=== PATIENT | female | born 1995 | race Hispanic/Latino ===

== ENCOUNTER 2018-08-04 21:00 | Emergency (ER) | payer SELFPAY ==
--- OUTSIDE RECORDS SUMMARY | 2018-08-04 21:02 | XMS REPORT ---
:1995 [facility] Address [address] [place] [address] Dr. Caldwell [address] [place] [address] Care Team Providers Name Role Phone Unavailable Unavailable Unavailable Problems This patient has no known problems. Allergies, Adverse Reactions, Alerts This patient has no known allergies or adverse reactions. Medications This patient has no known medications.
[2018-08-04 21:34] LABS: Urine Blood TRACE (NEG); Urine Glucose NEGATIVE (NEG); Urine Protein 1+ (NEG); Urine Specific Gravity 1.025 (1.005-1.030)
[2018-08-04] MEDS ORDERED: ONDANSETRON 4 MG (ODT) TAB ONE (21:55)
[2018-08-04] MEDS ORDERED: ACETAMINOPHEN 500 MG TAB ONE (22:55)
--- NOTE | 2018-08-04 22:58 | EDPHYS ---
Physician Documentation [facility] Name: Viv Faustin Age: 23 yrs Sex: Female : 1995 Arrival Date: 08/04/2018 Time: 21:01 Bed 19 Private MD: ED Physician Lb Kong HPI: 08/04 21:45 This 23 yrs old Female presents to ER via Ambulatory with complaints of cp Weakness, Cough, chills, Headache. 21:45 The patient or guardian reports cough, that is intermittent, with productive sputum. cp 21:45 Onset: The symptoms/episode began/occurred 2 day(s) ago. Associated signs and symptoms: cp Pertinent positives: diarrhea, sore throat, vomiting, headache, chills. Severity of symptoms: in the emergency department the symptoms are unchanged despite home interventions. Patient reports she is 6 weeks . Historical: - Allergies: 21:12 No Known Allergies; la1 - PMHx: 21:12 Anemia; la1 - Immunization history:: Adult Immunizations up to date. - Social history:: Smoking status: Patient/guardian denies using tobacco. - Ebola Screening: : No symptoms or risks identified at this time. ROS: 22:00 Constitutional: Positive for body aches, chills, Negative for fever, poor PO intake. cp 22:00 Eyes: Negative for injury, pain, redness, and discharge. cp 22:00 ENT: Positive for rhinorrhea, sore throat, Negative for drainage from ear(s), ear pain, difficulty swallowing, difficulty handling secretions. 22:00 Respiratory: Positive for cough, Negative for wheezing. 22:00 Abdomen/GI: Positive for vomiting, diarrhea, Negative for abdominal pain, constipation. 22:00 : Negative for urinary symptoms, vaginal bleeding, vaginal discharge. 22:00 Skin: Negative for cellulitis, rash. 22:00 Neuro: Positive for headache, Negative for altered mental status, weakness. 22:00 All other systems are negative. Exam: 22:05 Constitutional: The patient appears in no acute distress, alert, awake, non-toxic, well cp developed, well nourished. 22:05 Head/Face: Normocephalic, atraumatic. cp 22:05 Eyes: Periorbital structures: appear normal, Conjunctiva: normal, no exudate, no injection, Lids and lashes: appear normal, bilaterally. 22:05 ENT: External ear(s): are unremarkable, Ear canal(s): are normal, clear, TM's: bulging, is not appreciated, bilaterally, dullness, bilaterally, erythema, is not appreciated, bilaterally, Nose: nasal drainage, that is clear, Mouth: Lips: moist, Oral mucosa: moist, Posterior pharynx: Airway: no evidence of obstruction, patent, Tonsils: no enlargement, no exudate, swelling, is not appreciated, erythema, that is mild, Voice: is normal. 22:05 Neck: ROM/movement: is normal, is supple, without pain, no range of motions limitations, no meningismus, no nuchal rigidity. 22:05 Chest/axilla: Inspection: normal, Palpation: is normal, no crepitus, no tenderness. 22:05 Cardiovascular: Rate: normal, Rhythm: regular. 22:05 Respiratory: the patient does not display signs of respiratory distress, Respirations: normal, no use of accessory muscles, no retractions, no splinting, no tachypnea, labored breathing, is not present, Breath sounds: are clear throughout, no decreased breath sounds, no stridor, no wheezing. 22:05 Abdomen/GI: Inspection: abdomen appears normal, Palpation: abdomen is soft and non-tender, in all quadrants. 22:05 Skin: cellulitis, is not appreciated, no rash present. 22:05 Neuro: Orientation: to person, place \T\ time. Mentation: is normal, Cerebellar function: is grossly normal, Motor: is normal, Sensation: is normal. Vital Signs: 21:12 BP 104 / 63; Pulse 98; Resp 18; Temp 99.3; Pulse Ox 98% on R/A; Weight 70.76 kg; Height la1 4 ft. 11 in. (149.86 cm); 21:50 BP 111 / 61 LA Supine (auto/reg); Pulse 90; Resp 17; Pulse Ox 99% ; rr5 21:51 BP 115 / 65 LA Sitting (auto/); Pulse 97; Resp 16; Pulse Ox 98% ; rr5 21:52 BP 98 / 60 LA Standing (auto/reg); Pulse 102; Resp 17; Pulse Ox 100% ; rr5 22:40 BP 105 / 60; Pulse 95; Resp 17; Pulse Ox 99% ; rr5 23:00 BP 105 / 61; Pulse 96; Resp 16; Temp 99.1; Pulse Ox 99% ; rr5 23:20 BP 106 / 75; Pulse 98; Resp 16; Pulse Ox 98% ; rr5 21:12 Body Mass Index 31.51 (70.76 kg, 149.86 cm) la1 MDM: 21:14 Patient medically screened. cp 22:00 Differential diagnosis: bronchitis, flu, URI. cp 22:57 Data reviewed: vital signs, nurses notes, lab test result(s). cp 22:57 Counseling: I had a detailed discussion with the patient and/or guardian regarding: the cp historical points, exam findings, and any diagnostic results supporting the discharge/admit diagnosis, lab results, the need for outpatient follow up, an OB/Gyne specialist, to return to the emergency department if symptoms worsen or persist or if there are any questions or concerns that arise at home. 22:57 Response to treatment: the patient's symptoms have mildly improved after treatment, and cp as a result, I will discharge patient. 08/04 21:32 Order name: Urine Dipstick--Ancillary (enter results) sc 08/04 21:32 Order name: Urine --Ancillary (enter results) sc 08/04 21:33 Order name: Urine Dipstick-Ancillary; Complete Time: 21:36 EDMS 08/04 22:21 Interpretation: Normal except: UKET 2+; UBLD TRACE; UPROT 1+. 08/04 21:33 Order name: Urine --Ancillary; Complete Time: 21:36 EDMS 08/04 21:37 Order name: Influenza Screen (a \T\ B); Complete Time: 22:21 08/04 22:21 Interpretation: Normal except: FLUA FLU A ----- \T\nbsp; \T\nbsp; \T\nbsp; \T\nbsp; \T\nbsp; cp \T\nbsp; \T\nbsp; \T\nbsp; \T\nbsp; POSITIVE for FLU A protein antigen. 08/04 21:37 Order name: Strep; Complete Time: 22:21 cp 08/04 21:37 Order name: Orthostatics; Complete Time: 21:50 cp 08/04 22:01 Order name: Throat Culture EDNM 08/04 22:24 Order name: PO challenge; Complete Time: 22:44 cp Administered Medications: 21:50 Drug: Zofran 4 mg Route: PO; rr5 23:25 Follow up: Response: No adverse reaction rr5 22:44 Drug: Tylenol 1000 mg Route: PO; rr5 23:25 Follow up: Response: No adverse reaction rr5 Disposition: 08/04/18 22:58 Discharged to Home. Impression: Influenza due to identified novel influenza A virus. - Condition is Stable. - Discharge Instructions: Influenza, Adult, First Trimester of . - Prescriptions for Tamiflu 75 mg Oral Capsule - take 1 tablet by ORAL route every 12 hours for 5 days; 10 tablet. Phenergan 25 mg Rectal Suppository - insert 1 suppository by RECTAL route every 6 hours As needed; 12 suppository. promethazine 25 mg Oral Tablet - take 1 tablet by ORAL route every 6 hours As needed; 20 tablet. - Medication Reconciliation Form, Thank You Letter, Antibiotic Education, Prescription Opioid Use, Work release form form. - Follow up: Private Physician; When: 2 - 3 days; Reason: Recheck today's complaints. - Problem is new. - Symptoms have improved. Addendum: 08/07/2018 11:22 Co-signature as Attending Physician, Lb Kong MD I agree with the assessment and c peters plan of care. Signatures: Dispatcher [employer] EDNM Lb Kong MD MD cha Attema, Lee RN RN la1 Lb Boggs PA PA cp Roque, Raymond RN RN rr5 Corrections: (The following items were deleted from the chart) 08/04 23:26 22:58 08/04/2018 22:58 Discharged to Home. Impression: Influenza due to identified rr5 novel influenza A virus. Condition is Stable. Forms are Medication Reconciliation Form, Thank You Letter, Antibiotic Education, Prescription Opioid Use. Follow up: Private Physician; When: 2 - 3 days; Reason: Recheck today's complaints. Problem is new. Symptoms have improved. cp
--- NOTE | 2018-08-04 22:58 | ER ---
Nurse's Notes [facility] Name: Viv Faustin Age: 23 yrs Sex: Female : 1995 Arrival Date: 08/04/2018 Time: 21:01 Bed 19 Private MD: Diagnosis: Influenza due to identified novel influenza A virus Presentation: 08/04 21:11 Presenting complaint: Patient states: I have been feeling sick for 2 days with vomiting la1 and diarrhea and started with chills today. Pt is 6 weeks , also reports sore throat and cough. Transition of care: patient was not received from another setting of care. Onset of symptoms was August 04, 2018. Risk Assessment: Do you want to hurt yourself or someone else? Patient reports no desire to harm self or others. Initial Sepsis Screen: Does the patient meet any 2 criteria? No. Patient's initial sepsis screen is negative. Does the patient have a suspected source of infection? No. Patient's initial sepsis screen is negative. Care prior to arrival: None. 21:11 Method Of Arrival: Ambulatory la1 21:11 Acuity: RUBIN 4 la1 Historical: - Allergies: 21:12 No Known Allergies; la1 - PMHx: 21:12 Anemia; la1 - Immunization history:: Adult Immunizations up to date. - Social history:: Smoking status: Patient/guardian denies using tobacco. - Ebola Screening: : No symptoms or risks identified at this time. Screenin:15 Abuse screen: Denies threats or abuse. Denies injuries from another. Nutritional rr5 screening: No deficits noted. Tuberculosis screening: No symptoms or risk factors identified. Fall Risk None identified. Assessment: 21:15 General: Appears in no apparent distress. uncomfortable, Behavior is calm, cooperative, rr5 appropriate for age. Pain: Complains of pain in head Pain does not radiate. Pain currently is 7 out of 10 on a pain scale. Quality of pain is described as aching, Pain began gradually, Is intermittent. Neuro: Level of Consciousness is awake, alert, obeys commands, Oriented to person, place, time, situation, Appropriate for age Reports headache weakness. Cardiovascular: Capillary refill < 3 seconds Patient's skin is warm and dry. Respiratory: Reports cough that is Airway is patent Respiratory effort is even, unlabored, Respiratory pattern is regular, symmetrical. GI: Reports vomiting. : Urine is positive for test Reports 6 weeks . EENT: Reports sore throat. Derm: Skin is intact, Skin temperature is warm. Musculoskeletal: Capillary refill < 3 seconds, Range of motion: intact in all extremities. 22:40 Reassessment: complaining of headache. ED provider aware with order made and carried rr5 out. 23:20 Reassessment: Patient appears in no apparent distress at this time. Patient is alert, rr5 oriented x 3, equal unlabored respirations, skin warm/dry/pink. discharge instruction given and explained without complaints made. Patient states feeling better. Patient states symptoms have improved. Vital Signs: 21:12 BP 104 / 63; Pulse 98; Resp 18; Temp 99.3; Pulse Ox 98% on R/A; Weight 70.76 kg; Height la1 4 ft. 11 in. (149.86 cm); 21:50 BP 111 / 61 LA Supine (auto/reg); Pulse 90; Resp 17; Pulse Ox 99% ; rr5 21:51 BP 115 / 65 LA Sitting (auto/); Pulse 97; Resp 16; Pulse Ox 98% ; rr5 21:52 BP 98 / 60 LA Standing (auto/reg); Pulse 102; Resp 17; Pulse Ox 100% ; rr5 22:40 BP 105 / 60; Pulse 95; Resp 17; Pulse Ox 99% ; rr5 23:00 BP 105 / 61; Pulse 96; Resp 16; Temp 99.1; Pulse Ox 99% ; rr5 23:20 BP 106 / 75; Pulse 98; Resp 16; Pulse Ox 98% ; rr5 21:12 Body Mass Index 31.51 (70.76 kg, 149.86 cm) la1 ED Course: 21:01 Patient arrived in ED. am2 21:12 Triage completed. la1 21:13 Arm band placed on left wrist. la1 21:14 Lb Boggs PA is PHCP. cp 21:14 Lb Kong MD is Attending Physician. cp 21:15 Patient has correct armband on for positive identification. Placed in gown. Call light rr5 in reach. Pulse ox on. NIBP on. 21:27 Siddharth Harding, ALYCIA is Primary Nurse. rr5 23:25 No provider procedures requiring assistance completed. Patient did not have IV access rr5 during this emergency room visit. Administered Medications: 21:50 Drug: Zofran 4 mg Route: PO; rr5 23:25 Follow up: Response: No adverse reaction rr5 22:44 Drug: Tylenol 1000 mg Route: PO; rr5 23:25 Follow up: Response: No adverse reaction rr5 Outcome: 22:58 Discharge ordered by . cp 23:25 Discharged to home ambulatory. rr5 23:25 Condition: stable 23:25 Discharge instructions given to patient, Instructed on discharge instructions, follow up and referral plans. medication usage, Demonstrated understanding of instructions, follow-up care, Prescriptions given X 3. 23:26 Patient left the ED. rr5 Signatures: Shawn Sidhu RN RN la1 Lb Boggs PA PA cp Moreno, Amanda am2 Siddharth Harding RN RN rr5 Corrections: (The following items were deleted from the chart) 08/05 02:32 08/04 21:15 Respiratory: Reports cough that is Airway is patent Respiratory effort is rr5 even, unlabored, Respiratory pattern is regular, symmetrical, rr5 08/05 02:32 08/04 21:15 EENT: No signs and/or symptoms were reported regarding the EENT system. rr5 rr5
== END 2018-08-04 23:26 | disposition home or self-care (01) ==
LOC: ER 21:00
DX: J10.1 Influenza due to other identified influenza virus with other respiratory manifestations (principal); Z3A.01 Less than 8 weeks gestation of pregnancy
CPT/HCPCS: 81003; 81025; 87070; 87081; 87804; 99283

== ENCOUNTER 2018-10-30 00:43 | Inpatient (IN) | payer OTHER ==
[2018-10-30] MEDS ORDERED: CARBOPROST TROME 250 MCG/ML IM PRN (03:33)
[2018-10-30] MEDS ORDERED: METHYLERGONOVINE 0.2MG/ML AMP IM PRN (03:33)
[2018-10-30] MEDS ORDERED: Ringers Lactate 1,000 ML IV PRN (04:00)
--- OUTSIDE RECORDS SUMMARY | 2018-10-30 04:21 | XMS REPORT ---
:1995 [facility] Address [address] [place] [address] Dr. Caldwell [address] [place] [address] Care Team Providers Name Role Phone Unavailable Unavailable Unavailable Problems This patient has no known problems. Allergies, Adverse Reactions, Alerts This patient has no known allergies or adverse reactions. Medications This patient has no known medications.
[2018-10-30] MEDS ORDERED: OXYTOCIN/LR 20 UNITS/1,000 ML BAG IV SCH (04:30)
[2018-10-30] MEDS ORDERED: Ringers Lactate 1,000 ML IV SCH (04:30)
[2018-10-30 05:12] VITALS: BMI 35.5
[2018-10-30 05:20] LABS: RPR Titer ND
[2018-10-30 05:24] LABS: Urine Appearance CLEAR; Urine Bilirubin NEGATIVE (NEG); Urine Blood NEGATIVE (NEG); Urine Color YELLOW; Urine Glucose NEGATIVE (NEG); Urine Protein NEGATIVE (NEG)
[2018-10-30 05:26] LABS: Urine Microscopic Reflex NO UMIC
[2018-10-30 05:28] LABS: Absolute Monocytes 1.6 K/uL (0.1-1.3); Absolute Neutrophil 12.6 K/uL (1.8-8.0); Basophils % 0.2 % (0-1.3); Eosinophils % 0.4 % (0-4.4); Hematocrit 28.8 % (36.0-45.0); Lymphocytes % 17.4 % (15.3-44.8); MPV 8.5 fL (7.6-11.3); Monocytes % 9.1 % (3.3-12.3); RBC Red Blood Cell Count 4.36 M/uL (3.86-4.86)
[2018-10-30 06:00] LABS: Anisocytosis 2+; Blood Morphology Comment NOTED (NOT SEEN); Ovalocytes 1+; Platelet Estimate ADEQ
[2018-10-30] MEDS ORDERED: PROMETHAZINE 25 MG/ML VIAL IM ONE (08:31)
[2018-10-30] MEDS ORDERED: BUTORPHANOL 1 MG/ML INJ IV ONE (08:31)
[2018-10-30] MEDS ORDERED: FENTANYL CITR 100 MCG/2 ML IV ONE (10:01)
[2018-10-30] MEDS ORDERED: FENTANYL/BUPIVACAINE/NS/PF 200 MCG/100 ML BAG EP PRN (10:01)
[2018-10-30] MEDS ORDERED: BUPIVACAINE 0.25% PF 30 ML VIAL IV SCH (11:00)
[2018-10-30] MEDS ORDERED: ROPIVACAINE HCL 20 ML ONE (11:01)
[2018-10-30] MEDS ORDERED: ROPIVACAINE HCL 100 ML IV ONE (11:02)
[2018-10-30] MEDS ORDERED: LIDOCAINE 2% W/EPI 1:200,000 MPF 20 ML VIAL IM ONE (11:08)
[2018-10-30] MEDS ORDERED: DOCUSATE NA/SENNA CONC 1 TAB PO PRN (13:05)
[2018-10-30] MEDS ORDERED: Oxycodone HCl/Acetaminophen 1 TAB TAB PO PRN ×2 (13:05)
[2018-10-30] MEDS ORDERED: ACETAMINOPHEN 500 MG TAB PO PRN (13:05)
[2018-10-30] MEDS ORDERED: DIPHENHYDRAMINE 25 MG TAB/CAP PO PRN (13:05)
[2018-10-30] MEDS ORDERED: BISACODYL 10 MG RECTAL SUPP RECT PRN (13:05)
[2018-10-30] MEDS ORDERED: CEFAZOLIN/SWI 1gm 1 GM/10 ML SYR ONE (13:26)
[2018-10-30] MEDS ORDERED: OXYTOCIN/LR 20 UNIT/1,000 ML BAG IV SCH (14:00)
[2018-10-30] MEDS ORDERED: Ringers Lactate 1,000 ML IV ONE (17:43)
[2018-10-30] MEDS ORDERED: EPHEDRINE SULF 50 MG/5 ML SYR IM STA (19:17)
[2018-10-30] MEDS: IBUPROFEN 200 MG TAB PO PRN (20:15)
[2018-10-30 20:52] LABS: RPR (Rapid Plasma Reagin) NON-REACT (NON-REACT)
--- NOTE | 2018-10-31 11:43 | OP ---
Surgeon: Jerry Boyd MD A 23-year-old, 3, para 2, at 38 weeks and 6 days, favorable cervix. Numerous situations invo lving delivery of the baby tomorrow instead of today. We got clearance and decided to go today. I t hink this is quite reasonable. Female infant. The patient was 2.5 to 3 cm on admission. Rupture of membranes, clear fluid, 1 mg of Stadol IV, 25 mg of Phenergan IM. At 4 cm, requested and received e pidural anesthesia, which gave excellent effect during remainder of labor and delivery. Second stage of 10 minutes or less. Spontaneous vaginal delivery of an estimated 7-pound female, Apgars 9 and 9. No episiotomy. No lacerations. Manual removal of placenta, which was coming Mcneill and somewhat a dherent, 300 cc blood loss. Ancef 1 g ordered for prophylaxis. Rh positive, immune to Rubella, and negative beta strep screen. The patient tolerated all procedures well. Final Diagnoses: Term intrauterine . Vaginal delivery. Epidural anesthesia. Manual explo ration and removal of the placenta. MYKELC/MODL Voice ID: [id number] Report ID: [id number]
[2018-10-31 12:01] VITALS: BP 123/73; TEMP 97.8
[2018-10-31] MEDS: IBUPROFEN 200 MG TAB PO PRN (12:01)
--- NOTE | 2018-10-31 14:26 | PREOPHP ---
Date of Admission: 10/30/2018 This is a 23-year-old, 3, para 2, 38 weeks 6 days with favorable cervix and circumstances whi ch dictate that we deliver today instead of tomorrow. Fully explained to the patient and clearance t hrough labor and delivery. Patient is 2.5 cm, 50% effaced, vertex, -1 station. Rupture of membranes , clear fluid. Scotty regularly. She is Rh positive, immune to Rubella. Negative beta strep s creen. Full labor talk given. Patient will be requesting epidural. Of note, her admission white co unt was 17,000, but she is afebrile. The fluid is clear. There is no tenderness. She has had no fe yamileth. No signs of upper respiratory problems or even sinus problems so this may be sign just of early labor. We will monitor the temperature and heart rate during the labor and if any problems oc cur start her on antibiotics but right now I do not think this indicates any type of significant prob lems. Full labor talk given. MICHAEL/JOSE Voice ID: [id number]
--- NOTE | 2018-10-31 14:29 | PN ---
Subjective: Patient requested epidural anesthesia. She had 1 dose of Stadol 1 mg IV, Phenergan 25 m g IM and she is still somewhat obtunded from that. She is very comfortable at this point. Can barel y move her legs. We may cut the epidural back somewhat as she progresses. She is now 6 cm, 90% effa tommy, 0 to a -1 station. I anticipate more rapid progress soon. MICHAEL/JOSE Voice ID: [id number] Report ID: [id number]
[2018-11-02 04:04] LABS: HBsAG Nonreactive (Nonreactive)
== END 2018-10-31 15:30 | disposition home or self-care (01) | DRG 807 ==
LOC: 2ND-WC 04:19
PROVIDERS: ADMIT Specialist; ATTEND Specialist
PROC: 10E0XZZ Delivery of Products of Conception, External Approach (ICD-10-PCS; principal; 2018-10-30)
DX: O80 Encounter for full-term uncomplicated delivery (principal); Z37.0 Single live birth; Z3A.38 38 weeks gestation of pregnancy
CPT/HCPCS: 36415; 81003; 85025; 86592; 86901; 87340; J0595; J0690; J2210; J2550; J2590; J2795; J3010

== ENCOUNTER 2019-10-16 03:49 | Inpatient (IN) | payer OTHER ==
--- OUTSIDE RECORDS SUMMARY | 2019-10-16 03:51 | XMS REPORT ---
:1995 Author Organization [facility] Address [address] [place] [address] Dr. Caldwell [address] [place] [address] Care Team Providers Name Role Phone Claudy DATA CENTER TECHNICIAN, Lucille Attending Clinician Problems This patient has no known problems. Allergies, Adverse Reactions, Alerts This patient has no known allergies or adverse reactions. Medications This patient has no known medications. Procedures This patient has no known procedures. Encounters Start End Encounter Admission Attending Care Care Encounter Source Date/Time Date/Time Type Type Clinicians Facility Department ID 2019-08-08 2019-08-08 Telephone Claudy [facility] [id number] 00:00:00 00:00:00 Anisha Adkins [employer] MACHINE TENDER [id number] REGIONAL [id number] MATERNAL [id number] & CHILD [address] [place] [address] Results This patient has no known results.
--- OUTSIDE RECORDS SUMMARY | 2019-10-16 03:52 | XMS REPORT | Summary of Care ---
:1995 Author Organization [facility] Address [address] [place] [address] Care Team Providers Name Role Phone Lucille Loco OUT OF TOWN COLLECTION CLERK Primary Care Provider Encounter Details Date Type Department Care Team Description 07/24/2019 Orders Only [facility] Doctor Unassigned, No [address] [facility] [place] [address] [address] [place] [address] Allergies No Known Allergiesdocumented as of this encounter (statuses as of 07/24/2019) Medications Medication Sig Dispensed Refills Start Date End Date Status traMADOL (ULTRAM) 50 Take 1 Tab by mouth 30 Tab 0 6 Active mg tablet every 6 (six) hours as needed for Pain unrelieved by non-narcotic analgesics. vitamin Take 1 Tab by mouth 100 Tab 3 07/01/2015 Active w/FA (PRENATABS RX) daily. tablet docusate calcium Take 1 Cap by mouth 60 Cap 1 07/01/2015 Active (SURFAK) 240 mg once daily as needed capsule for Constipation. ferrous sulfate 325 Take 1 Tab by mouth 90 Tab 5 07/01/2015 Active mg (65 mg iron) 3 (three) times tablet daily with meals. ibuprofen (MOTRIN) Take 1 Tab by mouth 60 Tab 1 07/01/2015 Active 600 mg tablet every 6 (six) hours as needed for Pain (scale 1-3) or Pain (scale 4-6). Take with food or milk. foLIC acid (FOLATE) Take 1 Tab by mouth 30 Tab 5 07/01/2015 Active 1 mg tablet daily. documented as of this encounter (statuses as of 07/24/2019) Active Problems Problem Noted Date Liveborn , of [place] , born in [facility] by vaginal 07/01/2015 delivery 41 weeks gestation of 06/29/2015 Abnormal weight gain in 10/06/2013 Round ligament pain 10/06/2013 Hx of substance abuse 08/18/2013 Anemia of mother in , antepartum 08/18/2013 Rubella immune 11/14/2012 Generalized anxiety disorder 11/12/2012 Irregular menstrual cycle 11/12/2012 documented as of this encounter (statuses as of 07/24/2019) Resolved Problems Problem Noted Date Resolved Date Chlamydia trachomatis infection of lower genitourinary sites 11/14/2012 08/18/2013 Encounter for routine gynecological examination 11/12/2012 08/18/2013 Overview: ICD10 Diagnosis Term C Application Developer Utility Other general counseling and advice for contraceptive 201208/18/2013 management Tobacco use disorder 11/12/2012 08/18/2013 Overview: Marijuana. Stop during Dysmenorrhea 11/12/2012 08/18/2013 documented as of this encounter (statuses as of 07/24/2019) Immunizations Name Administration Dates Next Due Rubella 11/12/2012 Tdap 10/06/2013 Tetanus/Diptheria 2008 Varicella (varivax)(chicken pox) 1998 documented as of this encounter Social History Tobacco Use Types Packs/Day Years Used Date Former Smoker Cigarettes, Cigars Quit: Smokeless Tobacco: Never Used Alcohol Use Drinks/Week oz/Week Comments No 0 Standard drinks or equivalent 0.0 Sex Assigned at Date Recorded Not on file Job Start Date Occupation Industry Not on file Not on file Not on file Travel History Travel Start Travel End No recent travel history available. documented as of this encounter Last Filed Vital Signs Not on filedocumented in this encounter Plan of Treatment Date Type Specialty Care Team Description 07/24/2019 Initial Visit [facility] Anisha Loco, OUT OF TOWN COLLECTION CLERK [address] [place], [place] [address] [phone] Health Maintenance Due Date Last Done Comments VARICELLA VACCINES (2 of 2 - 06/19/1998 1998 2-dose childhood series) HPV VACCINES (1 - Female 2-dose 2005 series) PAP SMEAR 06/16/2018 06/16/2015 INFLUENZA VACCINE (#1) 2019 DTaP,Tdap,and Td Vaccines (2 - Td) 10/07/2023 10/06/2013 PNEUMOCOCCAL 0-64 YEARS COMBINED Aged Out No longer eligible based on SERIES patient's age to complete this topic documented as of this encounter Procedures Procedure Name Priority Date/Time Associated Diagnosis Comme nts ASSIGNMENT OF BENEFITS Routine 07/24/2019 9:41 AM [employer]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
--- OUTSIDE RECORDS SUMMARY | 2019-10-16 03:52 | XMS REPORT | Summary of Care ---
:1995 Author Organization [facility] Address [address] [place] [address] Care Team Providers Name Role Phone Lucille Loco Primary Care Provider Reason for Visit Reason Comments Lab Results Encounter Details Date Type Department Care Team Description 07/25/2019 Telephone [facility] RMP- A Anisha Gutierrez, LILIANA Lab Results [address] [place] [address] [facility] A [phone] [place], [place] [address] [phone] Allergies No Known Allergiesdocumented as of this encounter (statuses as of 07/28/2019) Medications Medication Sig Dispensed Refills Start Date End Date Status vit Take by mouth. 0 A ctive calc,iron,folic ( VITAMIN ORAL) documented as of this encounter (statuses as of 07/28/2019) Active Problems Problem Noted Date Supervision of high risk in second trimester 07/24/2019 Limited care in second trimester 07/24/2019 BMI 36.0-36.9,adult 07/24/2019 Obesity affecting in second trimester 2019 Hx of substance abuse 08/18/2013 Anemia of mother in , antepartum 08/18/2013 Generalized anxiety disorder 11/12/2012 Estimated Date of Delivery Comments Yes 11/09/2019 Based on last menstr ual period of 02/02/2019 (Within Weeks) documented as of this encounter (statuses as of 07/28/2019) Resolved Problems Problem Noted Date Resolved Date Liveborn , of otero , born in hospital by 07/01/2015 07/24/2019 vaginal delivery 41 weeks gestation of 06/29/2015 07/24/19 20 Abnormal weight gain in 10/06/20132019 Round ligament pain 10/06/2013 07/24/2019 Chlamydia trachomatis infection of lower genitourinary sites 11/14/2012 08/18/2013 Rubella immune 11/14/2012 07/24/2019 Encounter for routine gynecological examination 11/12/2012 08/18/2013 Overview: ICD10 Diagnosis Term Big 6 Dealer Utility Other general counseling and advice for contraceptive 201208/18/2013 management Tobacco use disorder 11/12/2012 08/18/2013 Overview: Marijuana. Stop during Irregular menstrual cycle 11/12/2012 07/24/2019 Dysmenorrhea 11/12/2012 08/18/2013 documented as of this encounter (statuses as of 07/28/2019) Immunizations Name Administration Dates Next Due Rubella 11/12/2012 Tdap 10/06/2013 Tetanus/Diptheria 2008 Varicella (varivax)(chicken pox) 1998 documented as of this encounter Social History Tobacco Use Types Packs/Day Years Used Date Former Smoker Cigarettes, Cigars Quit: Smokeless Tobacco: Never Used Alcohol Use Drinks/Week oz/Week Comments No 0 Standard drinks or equivalent 0.0 Estimated Date of Delivery Comments Yes 11/09/2019 Based on last menstr ual period of 02/02/2019 (Within Weeks) Sex Assigned at Date Recorded Not on file Job Start Date Occupation Industry Not on file Not on file Not on file Travel History Travel Start Travel End No recent travel history available. documented as of this encounter Last Filed Vital Signs Not on filedocumented in this encounter Plan of Treatment Date Type Specialty Care Team Description 08/07/2019 Routine Visit OB Satellites Anisha Loco, AIR TOOL OPERATOR [address] [place], [place] [address] [phone] Health Maintenance Due Date Last Done Comments PAP SMEAR 09/12/2019 06/16/2015 Postponed from 0 06/16/2018 (Alternative Endy delines) HPV VACCINES (1 - Female 2-dose 07/14/2020 Postponed from 2005 series) ( or Julissa astfeeding) INFLUENZA VACCINE (#1) 2020 Postponed from 02/02/2019 (Refused) DTaP,Tdap,and Td Vaccines (2 - 10/07/2023 10/06/2013 Td) PNEUMOCOCCAL 0-64 YEARS COMBINED Aged Out No longer eligible based on SERIES patient's age to complete this topic documented as of this encounter Results Not on filedocumented in this encounter Insurance Payer Benefit Plan / Subscriber ID Effective Phone Address T ype Group Dates MEDICAID MEDICAID PENDING 2019-[address] Pending [place] [address] documented as of this encounter
--- OUTSIDE RECORDS SUMMARY | 2019-10-16 03:52 | XMS REPORT | Summary of Care ---
:1995 Author Organization [facility] Address [address] [place] [address] Care Team Providers Name Role Phone Lucille Loco Primary Care Provider Reason for Visit Reason Comments New OB Visit Encounter Details Date Type Department Care Team Description [facility] pervision of high risk in second trimester (Primary Dx); Visit LILIANA Ballard Limited care in second trimeste r; [address] BMI 36.0-36.9,adult; [place], [place] Kun A Obesity affecting in second tr imester; [address] [place], [place] Multiparity [phone] Allergies No Known Allergiesdocumented as of this encounter (statuses as of 07/24/2019) Medications Medication Sig Dispensed Refills Start Date End Date Status vit Take by mouth. 0 A ctive calc,iron,folic ( VITAMIN ORAL) traMADOL (ULTRAM) Take 1 Tab by 30 Tab 0 07/01/2015 020 Discontinued 50 mg tablet mouth every 6 (six) hours as needed for Pain unrelieved by non-narcotic analgesics. vitamin Take 1 Tab by 100 Tab 3 07/01/2015 07/24/19 20 Discontinued w/FA (PRENATABS mouth daily. RX) tablet docusate calcium Take 1 Cap by 60 Cap 1 07/01/2015 07/24/19 20 Discontinued (SURFAK) 240 mg mouth once daily capsule as needed for Constipation. ferrous sulfate Take 1 Tab by 90 Tab 5 07/01/2015 0 Discontinued 325 mg (65 mg mouth 3 (three) iron) tablet times daily with meals. ibuprofen Take 1 Tab by 60 Tab 1 07/01/2015 07/24/2019 Disc ontinued (MOTRIN) 600 mg mouth every 6 tablet (six) hours as needed for Pain (scale 1-3) or Pain (scale 4-6). Take with food or milk. foLIC acid Take 1 Tab by 30 Tab 5 07/01/2015 07/24/2019 Dis continued (FOLATE) 1 mg mouth daily. tablet documented as of this encounter (statuses as of 07/24/2019) Active Problems Problem Noted Date Supervision of high risk in second trimester 07/24/2019 Limited care in second trimester 07/24/2019 BMI 36.0-36.9,adult 07/24/2019 Obesity affecting in second trimester 2019 Hx of substance abuse 08/18/2013 Generalized anxiety disorder 11/12/2012 Estimated Date [...] in 10/06/20132019 Round ligament pain 10/06/2013 07/24/2019 Anemia of mother in , antepartum 08/18/2013 07/24/2019 Chlamydia trachomatis infection of lower genitourinary sites 11/14/2012 08/18/2013 Rubella immune 11/14/2012 07/24/2019 Encounter for routine gynecological examination 11/12/2012 08/18/2013 Overview: ICD10 Diagnosis Term 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 Administrator Utility Other general counseling and advice for [...] Cigarettes, Cigars Quit: Smokeless Tobacco: Never Used Tobacco Cessation: Counseling Given: Yes Alcohol Use Drinks/Week oz/Week Comments No 0 [...] of this encounter Last Filed Vital Signs Vital Sign Reading Time Taken Comments Blood Pressure 109/61 07/24/2019 10:12 AM FINANCE INTERN Pulse 73 07/24/2019 10:12 AM FINANCE INTERN Temperature 36.6 C (97.8 F) 07/24/2019 10:12 AM FINANCE INTERN Respiratory Rate 16 07/24/2019 10:12 AM FINANCE INTERN Oxygen Saturation - - Inhaled Oxygen Concentration - - Weight 80.9 kg (178 lb 5 oz) 07/24/2019 10:12 AM FINANCE INTERN Height 149.9 cm (4' 11") 07/24/2019 10:12 AM FINANCE INTERN Body Mass Index 36.01 07/24/2019 10:12 AM FINANCE INTERN documented in this encounter Progress Notes Anisha Loco, CHOIR LEADER - 07/24/2019 9:45 AM CST Chief complaint: Chief Complaint Patient presents with New OB Visit CC: Initial Visit Viv Faustin is a 24 year old, , /White female. Patient's last menstrual period was 02/02/2019 (within weeks). States she had a + UPT on 03/04/19. She is 24w4d with an intrauterine . Her Estimated Date of Delivery: 11/09/19. She is being seen today for her first obstetrical visit. She has no complaints today. Denies current physical, emotional or sexual abuse. Patient denies recent foreign travel. She is taking PNV. She reports good FM. She denies any ctx/cramping, VB, LOF, EUCEDA, visual disturbance, vaginal discharge or dysuria. She denies any foreign travel. She also denies any physical, sexual or emotional abuse. OB History T3 L3 SAB0 TAB0 Ectopic0 Multiple0 Live Births3 Name of Baby 1: Not recorded Date: 11/28/13 GA: 40w0d Delivery: Vaginal Apgar1: Not recorded Apgar5: Not recorded Living: Living Name of Baby 2: Not recorded Date: 06/30/15 GA: 41w0d Delivery: Vaginal Apgar1: 8 Apgar5: 9 Living: Living Name of Baby 3: Not recorded Date: 10/30/18 GA: 40w0d Delivery: Vaginal, Spontaneous Apgar1: Not recorded Apgar5: Not recorded Living: Living Name of Baby 4: Not recorded Date: Not recorded GA: Not recorded Delivery: Not recorded Apgar1: Not recorded Apgar5: Not recorded Living: Not recorded Histories OB History Para Term AB Living 4 3 3 0 0 3 SAB TAB Ectopic Multiple Live Births 0 0 0 0 3 # Outcome Date GA Lbr Angus/2nd Weight Sex Delivery Anes PTL Lv 4 Current 3 Term 10/30/18 40w0d 6 lb 7 oz (2.92 kg) F Vag-Spont NICOLÁS 2 Term 06/30/15 41w0d 7 lb 11.7 oz (3.507 kg) F VAGINAL EPI NICOLÁS 1 Term 11/28/13 40w0d 8 lb 9 oz (3.884 kg) F VAGINAL NICOLÁS Past Medical History: Diagnosis Date Anemia of mother in , antepartum 08/18/2013 Anxiety no current medication Chlamydia trachomatis infection of lower genitourinary sites 11/14/2012 Chlamydia trachomatis infection of lower genitourinary sites 11/14/2012 Dysmenorrhea 11/12/2012 Generalized anxiety disorder 11/12/2012 resolved Hx of substance abuse 08/18/2013 Irregular menstrual cycle 11/12/2012 Tobacco use disorder 11/12/2012 Family History Problem Relation Age of Onset Hypertension Father Diabetes Father Breast Cancer Maternal Aunt Cancer Paternal Grandfather Hypertension Paternal Grandfather Neurological Mother "mini strokes" Arthritis NoFHx Asthma NoFHx defects NoFHx Colon Cancer NoFHx Ovarian Cancer NoFHx Uterine Cancer NoFHx Depression NoFHx Genetic NoFHx Heart NoFHx High cholesterol NoFHx Mental retardation NoFHx Osteoporosis NoFHx Psychiatry NoFHx Family Status Relation Name Status Fa Alive MAunt PGFa Mo Alive NoFHx (Not Specified) Past Surgical History: Procedure Laterality Date CORONARY ARTERY BYPASS GRAFT MYRINGOTOMY 2001 with "tissue taken out of my nose" during same surgery MYRINGOTOMY 2009 Social History Socioeconomic History Marital status: Single Spouse name: Not on file Number of children: 1 Years of education: 11 Highest education level: Not on file Occupational History Occupation: Unemployed Social Needs Financial resource strain: Not on file Food insecurity: Worry: Not on file Inability: Not on file Transportation needs: Medical: Not on file Non-medical: Not on file Tobacco Use Smoking status: Former Smoker Types: Cigarettes, Cigars Last attempt to quit: 06/04/2013 Years since quittin.1 Smokeless tobacco: Never Used Substance and Sexual Activity Alcohol use: No Alcohol/week: 0.0 standard drinks Drug use: No Sexual activity: Yes Partners: Male control/protection: None Comment: last sexual intercourse 07/17/2019 Lifestyle Physical activity: Days per week: Not on file Minutes per session: Not on file Stress: Not on file Relationships Social connections: Talks on phone: Not on file Gets together: Not on file Attends christian service: Not on file Active member of club or organization: Not on file Attends meetings of clubs or organizations: Not on file Relationship status: Not on file Intimate partner violence: Fear of current or ex partner: Not on file Emotionally abused: Not on file Physically abused: Not on file Forced sexual activity: Not on file Other Topics Concern Not on file Social History Narrative Denies domestic violence or abuse No exposure to cats No christian preference Patient lives with children. Social History Substance and Sexual Activity Sexual Activity Yes Partners: Male control/protection: None Comment: last sexual intercourse 07/17/2019 Genetic Screen Autism / Mental Retardation: No Jak Disease: No Congenital Heart Defect: No Cystic Fibrosis: No Down Syndrome: No Familial Dysautonomia: No Hemophilia or other Blood Disorders: No Kellie Chorea: No Maternal Metabolic Disorder--specify (eg. Type 1 Diabetes, PKU): No Muscular Dystrophy: No Neural Tube Defect: No Recurrent Loss or a Stillbirth: No Sickle Cell Disease or Trait: No Abdullahi Sachs: No Teratological Substances (specify type & strength/dose) since LMP: No Thalassemia: No Other Inherited Genetic or Chromosomal Disorder (specify): No No Significant History of Genetic Disorders: No Significant History of Genetic Disorders Labs Labs are pending. Radiology Radiology pending. Allergies Viv has No Known Allergies. Medications Viv has a current medication list which includes the following prescription(s): vit calc,iron,folic. Review of Systems Constitutional: Negative. Negative for appetite change, fatigue and fever. HENT: Negative. Eyes: Negative. Negative for visual disturbance. Respiratory: Negative. Breasts: Negative. Cardiovascular: Negative. Negative for palpitations and leg swelling. Gastrointestinal: Negative. Negative for abdominal pain, constipation, diarrhea, nausea and vomiting. Genitourinary: Negative. Negative for dysuria, vaginal bleeding, vaginal discharge and pelvic pain. Musculoskeletal: Negative. Skin: Negative. Negative for rash. Neurological: Negative. Negative for dizziness, light-headedness and headaches. Psychiatric/Behavioral: Negative. Endocrine: Endocrine negative BP 109/61 (BP Location: Right arm, Patient Position: Sitting, BP CUFF SIZE: Adult Medium) | Pulse 73 | Temp 36.6 C (97.8 F) (Oral) | Resp 16 | Ht 4' 11" (1.499 m) | Wt 178 lb 5 oz (80.9 kg) |LMP 02/02/2019 (Within Weeks) | No | BMI 36.01 kg/m Pregravid BMI: 32.3 Physical Exam Vitals reviewed. Constitutional: She is oriented to person, place, and time. She appears well- developed and well-nourished. Her body habitus is normal. See flowsheet Neck: No thyroid nodules and no thyromegaly palpated. Cardiovascular: Regular rate and rhythm. No murmur auscultated. No peripheral edema present. Pulmonary/Chest: Breath sounds clear to auscultation. Normal inspiratory effort. Abdominal: Abdomen is soft. No mass palpated. No tenderness present. There is no hepatosplenomegaly. Neuro/Psychiatric: She has a normal mood and affect. She is oriented to person, place, and time. Skin: Skin normal. No lesion and no rash present. tattoos present Genitourinary Comments: Chaperoned by: A Green MA Breast: Right breast exhibits no mass, no nipple discharge and no tenderness. Left breast exhibits no mass, no nipple discharge and no tenderness. Normal left breast and normal right breast External genitalia: Normal external genitalia appropriate for age. No labial lesion. Bladder: No tenderness. Normal bladder Vagina:Normal vagina. No lesion inspected. No abnormal vaginal discharge found. Cervix: Normal cervix. No lesion. No tenderness and no discharge present. Uterus: Uterus is enlarged. Uterus is normal position and non-tender. GravidNormal uterus Adnexa: Right adnexa without tenderness. Left adnexa without tenderness. Normal left adnexa and normal right adnexa PHYSICAL: General Exam: HEENT: Normal Thyroid: Normal Lymph Node: Normal Neurological: Normal Heart: Normal Lungs: Normal Breasts: Normal Abdomen: Normal Skin: Normal Extremities: Normal Pelvic Exam: Vulva: Normal Vagina: Normal Cervix: Normal Membrane status: Intact Uterus: 25 Weeks Adnexa: Normal Rectum: Normal Spines: Average Subpubic Arch: Normal Assessment/Plan 1. Supervision of high risk in second trimester 24w4d by suspected LMP and exam TWG discussed Discussed use of Deet Repellent Initiate Vitamins Increase Fluid Intake. Minimum of 8 water bottles daily. Pt instructed to notify clinic when insurance active and will order anatomy scan - POCT TEST - POCT URINALYSIS W SPECIFIC GRAVITY; Standing - POCT URINALYSIS W SPECIFIC GRAVITY - CBC WITH DIFF - GC & CHLAMYDIA AMPLIFIED ASSAY - HEPATITIS B SURFACE ANTIGEN - HCV ANTIBODY - HIV 1/2 AG-AB WITH REFLEX - WORKUP, BLOOD BANK - RUBELLA SCREEN (ELVIA) IGG - GALV ONLY - SYPHILIS IGG/IGM - URINE CULTURE - VZV ANTIBODY SCREEN - CBC WITH DIFFERENTIAL 2. Limited care in second trimester Entry to care at 24 weeks 3. BMI 36.0-36.9,adult The patient is asked to make an attempt to improve diet and exercise patterns to aid in medical management of this problem. 4. Obesity affecting in second trimester The patient is asked to make an attempt to improve diet and exercise patterns to aid in medical management of this problem. 5. Multiparity Return to clinic in 2 weeks. Reviewed patient instructions and provided printed copy. at 24w4d This visit did not involve counseling and coordination that comprised more than 50% of the visit time. ubio, GARETT Larsen - 07/24/2019 9:45 AM CSTPatient is 24 year old female here for current . Patient is . 1) Previous delivery methods vaginal 2) Patient is not experiencing cramping 3) Patient experienced spotting in 06/2019 x2 days. 4) LMP:03/04/2019 5) Last Pap was:2018 ROR signed today Results:negative per patient 6) Have you had a flu vaccine this season?no, refused 7) PPD candidate? no 8) Patient complains none 9) Patient denies history of physical, emotional, or sexual abuse. Patient states she currently feels safe at home. NOB packet given and reviewed with patient. documented in this encounter Plan of Treatment Date Type Specialty Care Team Description 08/07/2019 Routine Visit OB Satellites Anisha Loco FNP [address] [place] [address] [phone] Name Type Priority Associated Diagnoses Order S chedule POCT URINALYSIS W LAB Routine Supervision of high 20 Occurrences starting SPECIFIC GRAVITY risk in 2019 until second trimester 05/19/2020, 1 completed CBC WITH DIFF LAB Routine Supervision of high Ordered : 07/24/2019 risk in second trimester GC & CHLAMYDIA AMPLIFIED LAB Routine Supervision of h igh Ordered: 07/24/2019 ASSAY risk in second trimester HEPATITIS B SURFACE LAB Routine Supervision of high O rdered: 07/24/2019 ANTIGEN risk in second trimester HCV ANTIBODY LAB Routine Supervision of high Ordered: 07/24/2019 risk in second trimester HIV 1/2 AG-AB WITH REFLEX LAB Routine Supervision of high Ordered: 07/24/2019 risk in second trimester WORKUP, BLOOD LAB Routine Supervision of hig h Ordered: 07/24/2019 BANK risk in second trimester RUBELLA SCREEN (ELVIA) LAB Routine Supervision of hig h Ordered: 07/24/2019 IGG risk in second trimester GALV ONLY - SYPHILIS LAB Routine Supervision of high Ordered: 07/24/2019 IGG/IGM risk in second trimester URINE CULTURE LAB Routine Supervision of high Ordered : 07/24/2019 risk in second trimester VZV ANTIBODY SCREEN LAB Routine Supervision of O rdered: 07/24/2019 risk in second trimester CBC WITH DIFFERENTIAL LAB Routine Supervision of Ordered: 07/24/2019 risk in second trimester Health Maintenance Due Date Last Done Comments PAP SMEAR 09/12/2019 06/16/2015 Postponed from 0 06/16/2018 (Alternative Endy delines) HPV VACCINES (1 - Female 2-dose 07/14/2020 Postponed from 2005 series) ( or Julissa astfeeding) INFLUENZA VACCINE (#1) 2020 Postponed from 02/02/2019 (Refused) VARICELLA VACCINES (2 of 2 - 07/24/2020 1998 Pos tponed from 06/19/1998 2-dose childhood series) (Pregna nt or ) DTaP,Tdap,and Td Vaccines (2 - 10/07/2023 10/06/2013 Td) PNEUMOCOCCAL 0-64 YEARS COMBINED Aged Out No longer eligible based on SERIES patient's age to complete this topic documented as of this encounter Procedures Procedure Name Priority Date/Time Associated Diagnosis Comme nts POCT URINALYSIS Routine 07/24/2019 10:18 Supervision of R esults for this AM FINANCE INTERN risk in procedure are in second trimester the results section. POCT TEST Routine 07/24/2019 10:13 Supervision of az gh Results for this AM FINANCE INTERN risk in procedure are in second trimester the results section. documented in this encounter Results POCT URINALYSIS W SPECIFIC GRAVITY (07/24/2019 10:18 AM FINANCE INTERN) Pathologist Sig nature POCT U SP GRAV . 1.005 - 1.025 mg/dl POCT PH U 5 5 - 8 mg/dl POCT U LEUK EST trace Negative - Negative POCT U NIT negative Negative - Negative POCT U PROT trace Negative - Negative POCT U GLU negative Negative - Negative POCT U KETONE negative Negative - Negative POCT U UROBILI . 0.2 - 1 mg/dl POCT U BILI . Negative - Negative POCT U BLD negative Negative - Negative POCT U COLOR POCT U APPEAR Specimen Urine - URINE, CLEAN CATCH POCT TEST (07/24/2019 10:13 AM FINANCE INTERN) Pathologist Sig nature POCT PREG Positive On board controls acceptable Yes with C Line POCT PREG LOT # POCT PREG TEST DATE Specimen Urine - URINE, CLEAN CATCH documented in this encounter Visit Diagnoses Diagnosis Supervision of high risk in se cond trimester - Primary Unspecified high-risk Limited care in second trimeste r BMI 36.0-36.9,adult Body Mass Index 36.0-36.9, adult Obesity affecting in second tr imester Multiparity documented in this encounter Insurance Payer Benefit Plan / Subscriber ID Effective Phone Address T ype Group Dates MEDICAID MEDICAID PENDING 2019-[address] [place] [id number] documented as of this encounter
--- OUTSIDE RECORDS SUMMARY | 2019-10-16 03:52 | XMS REPORT | Summary of Care ---
:1995 Author Organization [facility] Address [address] [place] [address] Care Team Providers Name Role Phone Lucille Loco Primary Care Provider Reason for Visit Reason Comments New OB Visit Encounter Details Date Type Department Care Team Description [facility]2019 [facility] pervision of high risk in second trimester (Primary Dx); Visit LILIANA Ballard Limited care in second trimeste r; [address] BMI 36.0-36.9,adult; [place], [place] Kun A Obesity affecting in second tr imester; [address] [place], [place] Multip[place] [phone] Allergies No Known Allergiesdocumented as of [...] examination 11/12/2012 08/18/2013 Overview: ICD10 Diagnosis Term Front End Technician Utility Other general counseling and advice for [...] Comments Blood Pressure 109/61 07/24/2019 10:12 AM MALE IMPERSONATOR Pulse 73 07/24/2019 10:12 AM MALE IMPERSONATOR Temperature 36.6 C (97.8 F) 07/24/2019 10:12 AM MALE IMPERSONATOR Respiratory Rate 16 07/24/2019 10:12 AM MALE IMPERSONATOR Oxygen Saturation - - Inhaled Oxygen Concentration - - Weight 80.9 kg (178 lb 5 oz) 07/24/2019 10:12 AM MALE IMPERSONATOR Height 149.9 cm (4' 11") 07/24/2019 10:12 AM MALE IMPERSONATOR Body Mass Index 36.01 07/24/2019 10:12 AM MALE IMPERSONATOR documented in this encounter Progress Notes Anisha Loco, SALMON GILLNET VESSEL OPERATOR - 07/24/2019 9:45 AM CST Chief complaint: [...] file Gets together: Not on file Attends shinto service: Not on file Active member of [...] or abuse No exposure to cats No shinto preference Patient lives with children. Social History [...] Satellites Anisha Loco FNP [address] [place] [address] [phone] Name Type Priority Associated Diagnoses Order S [...] Supervision of R esults for this AM MALE IMPERSONATOR risk in procedure are in second trimester the results section. POCT TEST Routine 07/24/2019 10:13 Supervision of ma gh Results for this AM MALE IMPERSONATOR risk in procedure are in second trimester the results section. documented in this encounter Results POCT URINALYSIS W SPECIFIC GRAVITY (07/24/2019 10:18 AM MALE IMPERSONATOR) Pathologist Sig nature POCT U SP GRAV [...] CLEAN CATCH POCT TEST (07/24/2019 10:13 AM MALE IMPERSONATOR) Pathologist Sig nature POCT PREG Positive On [...] T ype Group Dates MEDICAID MEDICAID PENDING 2019-[address] Pending [place] [id number] documented as of this encounter
--- OUTSIDE RECORDS SUMMARY | 2019-10-16 03:52 | XMS REPORT | Summary of Care ---
:1994 Author Organization [facility] Address [address] [place] [address] Care Team Providers Name Role Phone Lucille Loco Primary Care Provider Reason for Visit Reason Comments New OB Visit Encounter Details Date Type Department Care Team Description 07/24/2019 [facility]oco pervision of high risk in second trimester (Primary Dx); Visit LILIANA Ballard Limited care in second trimeste r; [address] BMI 36.0-36.9,adult; [place], [place] Kun A Obesity affecting in second tr imester; [address] [place], [place] [phone] Allergies No Known Allergiesdocumented as of [...] examination 11/12/2012 08/18/2013 Overview: ICD10 Diagnosis 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 Utility Other general counseling and advice for [...] Comments Blood Pressure 109/61 07/24/2019 10:12 AM CATTLE FEEDER Pulse 73 07/24/2019 10:12 AM CATTLE FEEDER Temperature 36.6 C (97.8 F) 07/24/2019 10:12 AM CATTLE FEEDER Respiratory Rate 16 07/24/2019 10:12 AM CATTLE FEEDER Oxygen Saturation - - Inhaled Oxygen Concentration - - Weight 80.9 kg (178 lb 5 oz) 07/24/2019 10:12 AM CATTLE FEEDER Height 149.9 cm (4' 11") 07/24/2019 10:12 AM CATTLE FEEDER Body Mass Index 36.01 07/24/2019 10:12 AM CATTLE FEEDER documented in this encounter Progress Notes Anisha Loco, SECURITY CONTROL ROOM OFFICER - 07/24/2019 9:45 AM CST Chief complaint: [...] file Gets together: Not on file Attends methodist service: Not on file Active member of [...] or abuse No exposure to cats No methodist preference Patient lives with children. Social History [...] Satellites Anisha Loco FNP [address] [place] [phone] [phone] Name Type Priority Associated Diagnoses Date/Ti me CBC WITH DIFF LAB Routine Supervision of high risk 11:23 AM in second CATTLE FEEDER trimester GC & CHLAMYDIA AMPLIFIED LAB Routine Supervision of h igh risk 07/24/2019 11:23 AM ASSAY in second CATTLE FEEDER trimester HEPATITIS B SURFACE LAB Routine Supervision of high r isk 07/24/2019 11:23 AM ANTIGEN in second CATTLE FEEDER trimester HCV ANTIBODY LAB Routine Supervision of high risk 11:23 AM in second CATTLE FEEDER trimester HIV 1/2 AG-AB WITH REFLEX LAB Routine Supervision of high risk 07/24/2019 11:23 AM in second CATTLE FEEDER trimester RUBELLA SCREEN (ELVIA) LAB Routine Supervision of hig h risk 07/24/2019 11:23 AM IGG in second CATTLE FEEDER trimester GALV ONLY - SYPHILIS LAB Routine Supervision of high risk 07/24/2019 11:23 AM IGG/IGM in second CATTLE FEEDER trimester URINE CULTURE LAB Routine Supervision of high risk 11:23 AM in second CATTLE FEEDER trimester VZV ANTIBODY SCREEN LAB Routine Supervision of high r isk 07/24/2019 11:23 AM in second CATTLE FEEDER trimester CBC WITH DIFFERENTIAL LAB Routine Supervision of high risk 07/24/2019 11:23 AM in second CATTLE FEEDER trimester Name Type Priority Associated Diagnoses Order S chedule POCT URINALYSIS W LAB Routine Supervision of [facility] ris k 20 Occurrences starting SPECIFIC GRAVITY in second 07/06 until trimester 05/19/2020, 1 c ompleted WORKUP, BLOOD LAB Routine Supervision of [facility] h risk Ordered: 07/24/2019 BANK in second trimester Health Maintenance Due Date [...] Supervision of R esults for this AM CATTLE FEEDER risk in procedure are in second trimester the results section. POCT TEST Routine 07/24/2019 10:13 Supervision of tx gh Results for this AM CATTLE FEEDER risk in procedure are in second trimester the results section. documented in this encounter Results POCT URINALYSIS W SPECIFIC GRAVITY (07/24/2019 10:18 AM CATTLE FEEDER) Pathologist Sig nature POCT U SP GRAV [...] CLEAN CATCH POCT TEST (07/24/2019 10:13 AM CATTLE FEEDER) Pathologist Sig nature POCT PREG Positive On [...] T ype Group Dates MEDICAID MEDICAID PENDING 2019-[address] P[place] [address] [id number] 1 documented as of this encounter
--- OUTSIDE RECORDS SUMMARY | 2019-10-16 03:53 | XMS REPORT | Summary of Care ---
:1994 Author Organization [facility] Address [address] [place] [address] Care Team Providers Name Role Phone Lucille Loco Primary Care Provider Reason for Visit Reason Comments Lab Results Encounter Details Date Type Department Care Team Description 08/08/2019 Telephone [facility] RMP- A Anisha Gutierrez, LILIANA Lab Results [address] [place] [address] Kun A [phone] [place], [place] [address] [phone] Allergies No Known Allergiesdocumented as of this encounter (statuses as of 08/08/2019) Medications Medication Sig Dispensed Refills Start Date End Date Status vit Take by mouth. 0 A ctive calc,iron,folic ( VITAMIN ORAL) PNV 67-iron ps-folate Take 1 capsule by 30 capsule 11 0 Active no.1-dha (VITAFOL mouth daily. ULTRA) 29 mg iron- 1 mg-200 mg CapIndications: Supervision of high risk in second trimester Iron, Cbn & Take 1 tablet by 30 tablet 6 08/07/2019 Active Oofk-YF-E59-C-DSS mouth daily. (FERRALET 90 DUAL-IRON DELIVERY) 90-1-12-50 fb-bw-otb-mg per tabletIndications: Anemia of mother in , antepartum documented as of this encounter (statuses as of 08/08/2019) Active Problems Problem Noted Date Supervision of [...] as of this encounter (statuses as of 08/08/2019) Resolved Problems Problem Noted Date Resolved Date Liveborn , of otero , born in hospital by 07/01/2015 07/24/2019 vaginal delivery 41 weeks gestation of 06/29/2015 07/24/19 Abnormal weight gain in 10/06/20132019 Round ligament pain 10/06/2013 07/24/2019 Chlamydia trachomatis infection of lower genitourinary sites 11/14/2012 08/18/2013 Rubella immune 11/14/2012 07/24/2019 Encounter for routine gynecological examination 11/12/2012 08/18/2013 Overview: ICD10 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 Stop during Irregular menstrual cycle 11/12/2012 07/24/2019 Dysmenorrhea 11/12/2012 08/18/2013 documented as of this encounter (statuses as of 08/08/2019) Immunizations Name Administration Dates Next Due Rubella [...] Treatment Date Type Specialty Care Team Description 08/11/2019 Varying Exceptionalities Teacher Visit Maternal 1, [facility] Usg Room Medicine 08/21/2019 Routine Visit OB Satellites Anisha Loco , MAPLE SUGAR MAKER [address] [place], [place] [address] [phone] Health Maintenance Due Date Last Done Comments [...] Payer Benefit Plan / Subscriber ID Effective Dates Phone Addre ss Type Group TMHP MEDICAID OF xxxxxxxxx 2019-Present [phone] [address] Medicaid [place] [address] [place] [address] documented as of this encounter
--- OUTSIDE RECORDS SUMMARY | 2019-10-16 03:53 | XMS REPORT | Summary of Care ---
:[address] [facility] Address [address] [place] [address] Care Team Providers Name Role Phone Lucille Loco Primary Care Provider Reason for Visit Reason Comments ULTRASOUND (Routine) Status Reason Specialty Diagnoses / Referred By Referred To Procedures Contact Contact Closed Maternal Diagnoses Supervision of high risk in second trimester Anisha Loco Medicine Procedures CONSULT MATERNAL MEDICINE ULTRASOUND Preferred Location: LILIANA Ballard [address] [place] [address] Encounter Details Date Type Department Care Team Description 08/11/2019 Data Processing Operator Visit [facility] Women's Lyn Bob MD [address] [facility] [id number] [place] [address] Suspected damage to fetus from disease i n mother, antepartum condition, single or unspecified fetus; [address] Usg Room Obesity complicating in second trimester [facility] Clinics [address] [facility], [address] [place] [address] Allergies No Known Allergiesdocumented as of this encounter (statuses as of 08/11/2019) Medications Medication Sig Dispensed Refills Start Date [...] tablet by 30 tablet 6 08/07/2019 Active Dkes-IQ-D23-C-DSS mouth daily. (FERRALET 90 DUAL-IRON DELIVERY) 90-1-12-50 nu-tf-snh-mg per tabletIndications: Anemia of mother in , antepartum documented as of this encounter (statuses as of 08/11/2019) Active Problems Problem Noted Date Supervision of [...] as of this encounter (statuses as of 08/11/2019) Resolved Problems Problem Noted Date Resolved Date Liveborn infant, of otero , born in hospital by 07/01/2015 07/24/2019 vaginal delivery 41 weeks gestation of 06/29/2015 07/24/19 20 Abnormal weight gain in 10/06/20132019 Round ligament pain 10/06/2013 07/24/2019 Chlamydia trachomatis infection of lower genitourinary sites 11/14/2012 08/18/2013 Rubella immune 11/14/2012 07/24/2019 Encounter for routine gynecological examination 11/12/2012 08/18/2013 Overview: ICD10 Diagnosis 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 Stop during Irregular menstrual cycle 11/12/2012 07/24/2019 Dysmenorrhea 11/12/2012 08/18/2013 documented as of this encounter (statuses as of 08/11/2019) Immunizations Name Administration Dates Next Due Rubella [...] Treatment Date Type Specialty Care Team Description 08/21/2019 Routine Visit OB Satellites Anisha Loco, OYSTER PREPARER [address] [place], [place] [address] [phone] Health Maintenance Due Date Last Done Comments [...] Results Not on filedocumented in this encounter Visit Diagnoses Diagnosis Suspected damage to fetus from disease i n mother, antepartum condition, single or unspecified fetus Obesity complicating in second trimester Obesity complicating , childbir th, or the puerperium, antepartum condition or complication documented in this encounter Insurance Payer Benefit Plan / Subscriber ID Effective Dates Phone Addre ss Type Group TMHP MEDICAID OF xxxxxxxxx 2019-Present [phone] [address] Medicaid [place] [id number] [place] [phone] [id number] 1 documented as of this encounter
--- OUTSIDE RECORDS SUMMARY | 2019-10-16 03:53 | XMS REPORT | Summary of Care ---
:1994 Author Organization [facility] Address [address] [place] [address] Care Team Providers Name Role Phone Lucille Loco Primary Care Provider Reason for Visit Reason Comments Lab Results Encounter Details Date Type Department Care Team Description 08/08/2019 Telephone [facility] RMP- A Anisha Gutierrez, LILIANA Lab Results [address] [place] [address] Kun A [phone] [place], [place] [address] [phone] Allergies No Known Allergiesdocumented as of this [...] tablet by 30 tablet 6 08/07/2019 Active Ibbg-WV-B90-C-DSS mouth daily. 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
--- OUTSIDE RECORDS SUMMARY | 2019-10-16 03:53 | XMS REPORT | Summary of Care ---
:1994 Author Organization [facility] Address [address] [place] [address] Care Team Providers Name Role Phone Lucille Loco Primary Care Provider Reason for Visit Reason Comments Lab Results Encounter Details Date Type Department Care Team Description 08/08/2019 Telephone [facility] RMP- A Anisha Gutierrez, LILIANA Lab Results [address] [place] [address] Kun A [phone] [place], [place] [address] [phone] Allergies No Known Allergiesdocumented as of this [...] tablet by 30 tablet 6 08/07/2019 Active Kcuw-ZW-L09-C-DSS mouth daily. 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 Mfm Usg Room Medicine 08/21/2019 Routine Visit OB Satellites Anisha Loco , SEAT JOINER [address] [place], [place] [address] [phone] Health Maintenance Due Date Last Done Comments [...] Type Group TMHP MEDICAID OF xxxxxxxxx 2019-Present [phone] [address] Medicaid [place] [address] [place] [address] documented as of this encounter
--- OUTSIDE RECORDS SUMMARY | 2019-10-16 03:53 | XMS REPORT | Summary of Care ---
:[address] [facility] Address [address] [place] [address] Care Team Providers Name Role Phone Lucille Loco Primary Care Provider Reason for Referral (Routine) Status Reason Specialty Diagnoses / Referred By Referred To Procedures Contact Contact New Request Maternal Diagnoses Supervision of high risk in second trimester Anisha Loco Medicine Procedures CONSULT MATERNAL MEDICINE ULTRASOUND Preferred Location: LILIANA Ballard [address] [place] [address] Reason for Visit Reason Comments Care Encounter Details Date Type Department Care Team Description 08/07/2019 Routine [facility]- Anisha Loco pervision of high risk in second trimester (Primary Dx); Visit LILIANA Ballard Obesity affecting in second tr imester; [address] Anemia of mother in , antepartu m; [place], [place] Cough [address] [place], [place] [phone] [address] Allergies No Known Allergiesdocumented as of this encounter (statuses as of 08/07/2019) Medications Medication Sig Dispensed Refills Start Date [...] tablet by 30 tablet 6 08/07/2019 Active Wczf-HB-N39-C-DSS mouth daily. (FERRALET 90 DUAL-IRON DELIVERY) 90-1-12-50 zi-je-qnj-mg per tabletIndications: Anemia of mother in , antepartum documented as of this encounter (statuses as of 08/07/2019) Active Problems Problem Noted Date Supervision of [...] as of this encounter (statuses as of 08/07/2019) Resolved Problems Problem Noted Date Resolved Date Liveborn infant, of otero , born in hospital by 07/01/2015 07/24/2019 vaginal delivery 41 weeks gestation of 06/29/2015 07/24/19 20 Abnormal weight gain in 10/06/20132019 Round ligament pain 10/06/2013 07/24/2019 Chlamydia trachomatis infection of lower genitourinary sites 11/14/2012 08/18/2013 Rubella immune 11/14/2012 07/24/2019 Encounter for routine gynecological examination 11/12/2012 08/18/2013 Overview: ICD10 Diagnosis 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 Stop during Irregular menstrual cycle 11/12/2012 07/24/2019 Dysmenorrhea 11/12/2012 08/18/2013 documented as of this encounter (statuses as of 08/07/2019) Immunizations Name Administration Dates Next Due Rubella [...] Sign Reading Time Taken Comments Blood Pressure 113/81 08/07/2019 10:51 AM PRELOAD SUPERVISOR Pulse 92 08/07/2019 10:51 AM PRELOAD SUPERVISOR Temperature 36.7 C (98.1 F) 08/07/2019 10:51 AM PRELOAD SUPERVISOR Respiratory Rate 16 08/07/2019 10:51 AM PRELOAD SUPERVISOR Oxygen Saturation - - Inhaled Oxygen Concentration - - Weight 83.7 kg (184 lb 8 oz) 08/07/2019 10:51 AM PRELOAD SUPERVISOR Height 149.9 cm (4' 11") 08/07/2019 10:51 AM PRELOAD SUPERVISOR Body Mass Index 37.26 08/07/2019 10:51 AM PRELOAD SUPERVISOR documented in this encounter Progress Notes Anisha Loco, DAIRY FEED SALES CONSULTANT - 08/07/2019 10:30 AM CST Chief complaint: Chief Complaint Patient presents with Care HPI Viv Faustin is a 24 year old female is a @ 26w4d here for visit. Patient's last menstrual period was 02/02/2019 (within weeks). Estimated Date of Delivery: 11/09/19 Pt complains of a cough for 1 week. Taking OTC meds. No fever, chills, body aches or breathing changes. She is taking PNV. She reports good FM. She denies any ctx/cramping, VB, LOF, EUCEDA, visual disturbance, vaginal discharge or dysuria. She denies any foreign travel. She also denies any physical, sexual or emotional abuse. Histories OB History Para Term AB Living [...] file Gets together: Not on file Attends faith service: Not on file Active member of [...] or abuse No exposure to cats No faith preference Patient lives with children. Social History Substance and Sexual Activity Sexual Activity Yes Partners: Male control/protection: None Comment: last sexual intercourse 07/17/2019 Labs Labs are pending. Radiology Radiology pending. Allergies Viv has No Known Allergies. Medications Viv has a current medication list which includes the following prescription(s): iron, cbn & mmvd-ug-f07-c-dss, pnv 67-iron ps-folate no.1- dha, and vit calc,iron,folic. Review of Systems Constitutional: Negative for appetite change, fatigue and fever. Eyes: Negative for visual disturbance. Respiratory: Positive for cough. Negative for chest tightness, shortness of breath and wheezing. Cardiovascular: Negative for palpitations and leg swelling. Gastrointestinal: Negative for abdominal pain, constipation, diarrhea, nausea and vomiting. Genitourinary: Negative. Negative for dysuria, vaginal bleeding, vaginal discharge and pelvic pain. Musculoskeletal: Negative. Skin: Negative for rash. Neurological: Negative for dizziness, light-headedness and headaches. Psychiatric/Behavioral: Negative. BP 113/81 (BP Location: Right arm, Patient Position: Sitting, BP CUFF SIZE: Adult Medium) | Pulse 92 | Temp 36.7 C (98.1 F) (Oral) | Resp 16 | Ht 4' 11" (1.499 m) | Wt 184 lb 8 oz (83.7 kg) |LMP 02/02/2019 (Within Weeks) | BMI 37.26 kg/m Pregravid BMI: 32.3 Physical Exam Vitals reviewed. Constitutional: She is oriented to person, place, and time. She appears well- developed and well-nourished. See flowsheet Cardiovascular: No peripheral edema present. Pulmonary/Chest: Breath sounds clear to auscultation. Normal inspiratory effort. Abdominal: Abdomen is soft. Neuro/Psychiatric: She has a normal mood and affect. She is oriented to person, place, and time. Skin: Skin normal. Assessment/Plan 1. Supervision of high risk in second trimester 26w4d PTL warnings reviewed 26 week labs today Anatomy scan ordered to confirm dating as well, late entry to care Plan 28 week labs at next visit pending ultrasound - CONSULT MATERNAL MEDICINE ULTRASOUND Preferred Location: [place] - CBC WITH DIFF - GLUCOSE 1 HOUR POST PRANDIAL - CBC WITH DIFFERENTIAL - PNV 67-iron ps-folate no.1-dha (VITAFOL ULTRA) 29 mg iron- 1 mg-200 mg Cap; Take 1 capsule by mouth daily. Dispense: 30 capsule; Refill: 11 - POCT URINALYSIS W SPECIFIC GRAVITY - HIV 1/2 AG-AB WITH REFLEX; Future - GALV ONLY - SYPHILIS IGG/IGM; Future - TDAP (ADACEL) IMMUNIZATION; Future 2. Obesity affecting in second trimester The patient is asked to make an attempt to improve diet and exercise patterns to aid in medical management of this problem. 3. Anemia of mother in , antepartum Continue iron therapy, eat iron rich foods. - Iron, Cbn & Pibc-TN-M35-C-DSS (FERRALET 90 DUAL-IRON DELIVERY) 90-1-12-50 qx-wy-snj-mg per tablet; Take 1 tablet by mouth daily. Dispense: 30 tablet; Refill: 6 4. Cough Reviewed safe medication list in ER warnings Return to clinic in 2 weeks. Discussed treatment options. Reviewed patient instructions and provided printed copy. at 26w4d This visit did not involve counseling and coordination that comprised more than 50% of the visit time. OAD SUPERVISOR documented in this encounter Plan of Treatment Date Type Specialty Care Team Description 08/21/2019 Routine Visit OB Satellites Anisha Loco FNP [address] [place], [place] [address] [phone] Name Type Priority Associated Diagnoses Order S chedule CBC WITH DIFF LAB Routine Supervision of high Ordered : risk in 08/07/2019 second trimester GLUCOSE 1 HOUR POST LAB Routine Supervision of high O rdered: PRANDIAL risk in 08/07/2019 second trimester CBC WITH DIFFERENTIAL LAB Routine Supervision of high Ordered: risk in 08/07/2019 second trimester HIV 1/2 AG-AB WITH LAB Routine Supervision of high Ex pected: REFLEX risk in 08/18/2019 , second trimester Expires: 08/06/2020 GALV ONLY - SYPHILIS LAB Routine Supervision of high Expected: IGG/IGM risk in 08/18/2019 , second trimester Expires: 08/06/2020 TDAP (ADACEL) IMMUNIZATION/I Routine Supervision of high Expec praveen: IMMUNIZATION NJECTION risk in 08/21/2019 , second trimester Expires: 10/07/2019 Health Maintenance Due Date Last Done Comments [...] Associated Diagnosis Comme nts POCT URINALYSIS Routine 08/07/2019 10:57 AM [facility] Results for this PRELOAD SUPERVISOR risk in procedure are in second trimester the results section. documented in this encounter Results POCT URINALYSIS W SPECIFIC GRAVITY (08/07/2019 10:57 AM PRELOAD SUPERVISOR) Pathologist Sig nature POCT U SP GRAV . 1.005 - 1.025 mg/dl POCT PH U . 5 - 8 mg/dl POCT U LEUK EST . Negative - Negative POCT U NIT . Negative - Negative POCT U PROT TRACE Negative - Negative POCT U GLU NEGATIVE Negative - Negative POCT U KETONE . Negative - Negative POCT U UROBILI . 0.2 - 1 mg/dl POCT U BILI . Negative - Negative POCT U BLD . Negative - Negative POCT U COLOR POCT U APPEAR Specimen Urine - URINE, CLEAN CATCH documented in this encounter Visit Diagnoses Diagnosis Supervision of high risk in se cond trimester - Primary Unspecified high-risk Obesity affecting in second tr imester Anemia of mother in , antepartu m Anemia, antepartum Cough documented in this encounter Insurance Payer Benefit Plan / Subscriber ID Effective Dates Phone Addre ss Type Group TMHP MEDICAID OF xxxxxxxxx 2019-Present [phone] [address] Medicaid [place] [id number] [place] [phone] [id number] 1 documented as of this encounter
[2019-10-16] MEDS ORDERED: Ringers Lactate 1,000 ML IV PRN (04:07)
[2019-10-16] MEDS ORDERED: METHYLERGONOVINE 0.2MG/ML AMP IM PRN (04:07)
[2019-10-16] MEDS ORDERED: PROMETHAZINE INJ 25 MG/ML AMP IM PRN (04:07)
[2019-10-16] MEDS ORDERED: PENICILLIN 5 MU in NA CHLORIDE 0.9% 100 ML IV ONE (04:07)
[2019-10-16] MEDS ORDERED: BUTORPHANOL 1 MG/ML INJ ONE (04:11)
[2019-10-16] MEDS ORDERED: PROMETHAZINE INJ 25 MG/ML AMP ONE (04:11)
[2019-10-16] MEDS ORDERED: CARBOPROST TROME 250 MCG/ML IM ONE (04:15)
[2019-10-16] MEDS ORDERED: METHYLERGONOVINE 0.2MG/ML AMP IM ONE (04:15)
[2019-10-16] MEDS ORDERED: LIDOCAINE 1% MPF 30 ML VIAL ONE (04:15)
[2019-10-16] MEDS ORDERED: OXYTOCIN/LR 20 UNIT/1,000 ML BAG IV ONE (04:15)
[2019-10-16 04:30] LABS: Urine Appearance CLOUDY; Urine Bilirubin NEGATIVE (NEG); Urine Blood NEGATIVE (NEG); Urine Color YELLOW; Urine Glucose NEGATIVE (NEG); Urine Protein NEGATIVE (NEG); Urine Specific Gravity 1.025 (1.005-1.030)
[2019-10-16 04:40] LABS: Absolute Lymphocytes (CBC) 3.3 K/uL (0.7-4.9); Basophils % 0.2 % (0-1.3); Hematocrit 30.7 % (36.0-45.0); MPV 8.7 fL (7.6-11.3)
[2019-10-16] MEDS ORDERED: Ringers Lactate 1,000 ML IV SCH (05:00)
[2019-10-16] MEDS ORDERED: DIPHENHYDRAMINE 25 MG TAB/CAP PO PRN (05:10)
[2019-10-16] MEDS ORDERED: IBUPROFEN 200 MG TAB PO PRN (05:10)
[2019-10-16] MEDS ORDERED: Oxycodone HCl/Acetaminophen 1 TAB TAB PO PRN ×2 (05:10)
[2019-10-16] MEDS ORDERED: DOCUSATE NA/SENNA CONC 1 TAB PO PRN (05:10)
[2019-10-16] MEDS ORDERED: BISACODYL 10 MG RECTAL SUPP RECT PRN (05:10)
[2019-10-16] MEDS ORDERED: ACETAMINOPHEN 500 MG TAB PO PRN (05:10)
[2019-10-16 05:25] LABS: Urine Microscopic Reflex ORDER UMIC
--- NOTE | 2019-10-16 05:33 | PREOPHP ---
Date of Admission: 10/16/2019 History: 24-year-old 4, para 3, 36 weeks and 5 days according to the patient. Followed by [facility] ARANA. Apparently delivered here her last as well, came in reporting rupture of membranes. Patient is 7 cm, 90% effaced, -0 station. Clear fluid. FHTs normal, graham every 2.5 to 3 isabel yuri. Patient, at her request, has already received 1 mg of Stadol, 25 mg of Phenergan IM. Lab is no t known. We have offered the patient penicillin prophylaxis. Family History: Noncontributory. Physical Examination: Vital Signs: All of her vital signs are normal. General: Patient has no problems. HEENT: Clear grossly. Breasts: Not examined. Abdomen: Massively obese. Extremities: Clear. Pelvic: As stated 7 cm, 90% effaced, vertex, clear fluid. Anticipate delivery relatively soon. MICAHEL/JOSE Voice ID: [id number]
[2019-10-16 05:40] LABS: Urine Culture Reflex Order REFLEXED
[2019-10-16 05:41] LABS: Urine Bacteria <20 /HPF (<20); Urine RBC <5 /HPF (NONE SEEN)
[2019-10-16 05:56] VITALS: BMI 7699.1
[2019-10-16] MEDS ORDERED: OXYTOCIN/LR 20 UNIT/1,000 ML BAG IV SCH (06:00)
--- NOTE | 2019-10-16 06:24 | OP ---
Surgeon: Jerry Boyd MD A 24-year-old 4, para 3, 36 weeks 5 days. Followed by [facility] without apparent complications. Admitted to our labor and delivery with rupture of membranes, 7 cm and progressing rapidly. Received Stadol 1 mg IV, Phenergan 25 mg IM. Second stage basically 1 push spontaneous vaginal delivery of a 6 pound, 3 ounce male Apgars 9 and 9 or 9 and 10. No episiotomy, no laceration. Schultze delivery of the placenta. Estimated blood loss 350 mL or less. All labs are pending, although she had an marshall vated white count on admission, but was in advanced labor. No fever, no tachycardia, no signs of infection. She received 1 dose of penicillin as her beta strep status was unknown. Tolerated all procedures well. Final Diagnoses: Intrauterine gestation, 36 weeks 5 days. Rupture of membranes, vaginal delivery, p enicillin prophylaxis. Laboratory pending. MICHAEL/JOSE Voice ID: [id number] Report ID: [id number]
[2019-10-16 06:37] LABS: Anisocytosis 1+; Blood Morphology Comment NOTED (NOT SEEN); Hypochromasia 1+; Platelet Estimate ADEQ
[2019-10-16] MEDS ORDERED: MEASLES,MUMPS,RUBELLA VAC 0.5ML SQVAC ONE (11:46)
[2019-10-16] MEDS ORDERED: Tdap (Diph,Pertuss(Acell),Tet Vac) 0.5 ML SYR IMVAC ONE (11:46)
[2019-10-16 23:18] LABS: RPR (Rapid Plasma Reagin) NON-REACT (NON-REACT)
--- NOTE | 2019-10-17 09:30 | DS ---
A 24-year-old, multiparous female, 4, para 3, followed antepartum [facility], apparently del ivered here last year as well. Even though she was seen at the [facility] came in at 36 weeks, 5 da ys, with rupture of membranes, and advanced dilation went rapidly to complete. Delivered a viable in doris with Apgars 9 and 9. No episiotomy. No laceration. Schultze delivery of the placenta. Estima praveen blood loss less than 300 mL. Rh positive, unsure rubella status or Tdap immunization. Therefore , both have been given. She has been afebrile, ambulating and no complaints or problems. White coun t was 23,000 on admission, but she has been completely afebrile. There was no signs of amnionitis du ring the labor. The elevated white count was because of advanced labor and stress at that time and n ot indicative of infection. Full dismissal instructions given. Final Diagnoses: Intrauterine gestation, 36 weeks, 5 days; premature rupture of membranes; vaginal d elivery; penicillin prophylaxis. Tdap and rubella immunizations given. MICHAEL/JOSE Voice ID: [id number] Report ID: [id number]
[2019-10-17 09:41] VITALS: BP 105/53; TEMP 97.9
[2019-10-19 18:10] LABS: HBsAG Nonreactive (Nonreactive)
== END 2019-10-17 11:45 | disposition home or self-care (01) | DRG 807 ==
LOC: L&D 03:49 → 2ND-WC 04:15
PROVIDERS: ADMIT Specialist; ATTEND Specialist
PROC: 10E0XZZ Delivery of Products of Conception, External Approach (ICD-10-PCS; principal; 2019-10-16)
DX: O80 Encounter for full-term uncomplicated delivery (principal); Z37.0 Single live birth; Z3A.36 36 weeks gestation of pregnancy
CPT/HCPCS: 36415; 81003; 81015; 85025; 85461; 86592; 86850; 86900; 86901; 87086; 87088; 87340; 90471; 90707; 90715; J0595; J2210; J2550; J2590; J7120